=== PATIENT | male | born 1990 | race Two or more races ===

== ENCOUNTER 2018-08-07 06:08 | Emergency (ER) | payer OTHER ==
[~2018-08-07] VITALS: Ht 188 cm; Wt 65.8 kg
[2018-08-07 06:14] VITALS: Ht 188 cm; Wt 65.8 kg
[2018-08-07 08:13] LABS: PLATELET COUNT 263 x10^3mcL (130-400); RED CELL DISTRIBUTION WIDTH 12.3 % (11.5-14.5)
[2018-08-07 08:32] LABS: CALCIUM 9.2 mg/dL (8.5-10.1); CARBON DIOXIDE 27.3 mmol/L (21-32); CHLORIDE SERUM 107 mmol/L (98-107); GFR1 > 60 mL/min; GLUCOSE SERUM 93 mg/dL (74-106); SODIUM SERUM 143 mmol/L (136-145)
[2018-08-07 08:35] VITALS: BP 120/71
[2018-08-07 08:39] LABS: ALBUMIN 4.1 g/dL (3.4-5.0); ALKALINE PHOSPHATASE 58 U/L (46-116); ALT/SGPT 35 U/L (16-63); AST/SGOT 35 U/L (15-37); BILIRUBIN TOTAL 0.39 mg/dL (0.20-1.00)
[2018-08-07 09:00] LABS: BAND NEUTROPHIL 0 % (0-10); BASOPHIL 0 % (0-2); MONOCYTE 3 % (0-7); SEGMENTED NEUTROPHILS 95 % (37-75)
[2018-08-07 09:02] LABS: rbc morphology (normal/abnorm) ABNORMAL (NORMAL)
[2018-08-07 09:03] LABS: PLATELET MORPHOLOGY PLATELETS DECREASED
== END 2018-08-07 08:35 | disposition short-term general hospital (02) ==
LOC: ED 06:08
PROVIDERS: Emergency Medicine
DX: I62.9 Nontraumatic intracranial hemorrhage, unspecified (principal); S52.001A Unspecified fracture of upper end of right ulna, initial encounter for closed fracture; F41.9 Anxiety disorder, unspecified; Z90.89 Acquired absence of other organs; W11.XXXA Fall on and from ladder, initial encounter; Y93.89 Activity, other specified; Y92.89 Other specified places as the place of occurrence of the external cause; Y99.8 Other external cause status
CPT/HCPCS: J2270; J2405; J7030